=== PATIENT | male | born 1975 | race Caucasian/White ===

== ENCOUNTER 2020-04-02 13:24 | Inpatient (IN) | payer MEDICAID ==
[~2020-04-02] VITALS: Ht 167.6 cm; Wt 100.2 kg
[2020-04-02] MEDS ORDERED: ACETAMINOPHEN 500MG TABLET PO ONE (15:00)
[2020-04-02 15:09] LABS: BASOPHILS % 0.2 % (0.0-2.0); HEMATOCRIT. 41.3 % (42.0-52.0); HEMOGLOBIN. 14.2 g/dL (14.0-18.0); LYMPHOCYTES % 12.5 % (20.0-50.0); MEAN CORPUSCULAR HEMOGLOBIN 27.4 pg (28.0-32.0); MEAN CORPUSCULAR VOLUME 79.8 fL (80.0-94.0); MEAN PLATELET VOLUME 7.9 fl (7.4-10.4); MONOCYTES % 4.7 % (2.0-8.0); NEUTROPHILS % 82.6 % (40.0-76.0); PLATELET 245 x1000/uL (130-400); RED BLOOD CELL COUNT 5.17 mill/uL (4.7-6.1); RED CELL DISTRIBUTION WIDTH 14.5 % (11.6-14.6)
[2020-04-02 15:18] LABS: CHLORIDE 100 mEq/L (98-107)
[2020-04-02 15:19] LABS: PROTHROMBIN TIME 10.8 sec (9.6-11.0)
[2020-04-02] MEDS ORDERED: ONDANSETRON HCL 4MG/2ML INJ IV PRN (16:00)
[2020-04-02] MEDS ORDERED: CEFTRIAXONE 1 G PREMIX 50 ML IV SCH (16:30)
[2020-04-02] MEDS: DEXAMETHASONE 4MG TABLET PO SCH (17:37)
[2020-04-02] MEDS: ALBUTEROL 6.7GM HFA INHALER ORI SCH (18:00)
[2020-04-02] MEDS: ENOXAPARIN 100MG/ML SYR SUBCUT SCH (18:39)
[2020-04-02] MEDS: GUAIFENESIN 600MG ER TABLET PO SCH (21:00)
[2020-04-02 22:00] VITALS: BP 148/83
[2020-04-02 22:03] LABS: CLARITY URINE CLEAR (CLEAR); COLOR URINE YELLOW (YELLOW); KETONES URINE 2+ (NEGATIVE); LEUKOCYTE ESTERASE URINE NEGATIVE (NEGATIVE); NITRITE URINE NEGATIVE (NEGATIVE); OCCULT BLOOD URINE NEGATIVE (NEGATIVE); PROTEIN URINE 1+ (NEGATIVE); SPECIFIC GRAVITY URINE 1.024 (1.005-1.030)
[2020-04-02 22:18] LABS: *AMPHETAMINES SCREEN URINE NEGATIVE (NEGATIVE); *BARBITURATES SCREEN URINE NEGATIVE (NEGATIVE); *BENZODIAZEPINES SCREEN URINE NEGATIVE (NEGATIVE); *COCAINE SCREEN URINE NEGATIVE (NEGATIVE)
[2020-04-02 22:19] LABS: CANNABINOID URINE SCREEN NEGATIVE (NEGATIVE); METHADONE URINE SCREEN NEGATIVE (NEGATIVE); OPIATES URINE SCREEN NEGATIVE (NEGATIVE); PHENCYCLIDINE URINE SCREEN NEGATIVE (NEGATIVE)
[2020-04-03] VITALS: BP 108/65
[2020-04-03 04:00] VITALS: BP 111/72
[2020-04-03] MEDS: ENOXAPARIN 100MG/ML SYR SUBCUT SCH ×2 (05:02→17:03)
[2020-04-03] MEDS: ALBUTEROL 6.7GM HFA INHALER ORI SCH ×5 (05:02→23:25)
[2020-04-03] MEDS: BENZONATATE 100MG CAPSULE PO PRN (05:15)
[2020-04-03 08:00] VITALS: BP 118/67
[2020-04-03] MEDS: AZITHROMYCIN 500 MG TABLET PO SCH (09:58)
[2020-04-03] MEDS: DEXAMETHASONE 4MG TABLET PO SCH (09:58)
[2020-04-03] MEDS: GUAIFENESIN 600MG ER TABLET PO SCH ×2 (09:58→20:25)
[2020-04-03 12:00] VITALS: BP 127/71
[2020-04-03] MEDS: CEFTRIAXONE 1 G PREMIX 50 ML IV SCH (13:32)
[2020-04-03 16:00] VITALS: BP 115/61
[2020-04-03 19:15] LABS: BG BASE EXCESS 0.6 mmol/L (-2.0-2.0); BG CARBOXYHEMOGLOBIN 0.3 % (0.5-1.5); BG DEOXYHEMOGLOBIN 8.5 % (0.0-5.0); BG FRACTION INSPIRED OXYGEN 21; BG HCO3 ACT 25.1 mmol/L (22.0-26.0); BG METHEMOGLOBIN 0.3 % (0.0-1.5); BG OXYGEN SATURATION 91.4 % (92.0-98.5); BG OXYHEMOGLOBIN 90.9 % (94.0-97.0); BG PH 7.416 (7.350-7.450); BG PO2 59.6 mmHg (75.0-100.0); BG SAMPLE SITE RIGHT RADIAL; BG TOTAL HEMOGLOBIN 15.5 g/dL (12.0-18.0); BG VENT MODE ROOM AIR
[2020-04-03 20:00] VITALS: BP 127/95
[2020-04-04] VITALS: BP 118/60
[2020-04-04] MEDS: BENZONATATE 100MG CAPSULE PO PRN (01:07)
[2020-04-04 04:00] VITALS: BP 125/67
[2020-04-04] MEDS: ALBUTEROL 6.7GM HFA INHALER ORI SCH ×3 (05:11→17:45)
[2020-04-04] MEDS: ENOXAPARIN 100MG/ML SYR SUBCUT SCH ×2 (05:11→17:44)
[2020-04-04 08:00] VITALS: BP 121/95
[2020-04-04] MEDS: AZITHROMYCIN 500 MG TABLET PO SCH (08:55)
[2020-04-04] MEDS: DEXAMETHASONE 4MG TABLET PO SCH (08:55)
[2020-04-04] MEDS: GUAIFENESIN 600MG ER TABLET PO SCH ×2 (08:55→20:15)
[2020-04-04 12:00] VITALS: BP 120/81
[2020-04-04] MEDS: CEFTRIAXONE 1 G PREMIX 50 ML IV SCH (13:06)
[2020-04-04 16:00] VITALS: BP 124/82
[2020-04-04 20:00] VITALS: BP 121/73
[2020-04-05] VITALS: BP 132/81
[2020-04-05] MEDS: ALBUTEROL 6.7GM HFA INHALER ORI SCH ×4 (00:07→17:06)
[2020-04-05] MEDS: ACETAMINOPHEN 325MG TABLET PO PRN ×3 (00:07→20:25)
[2020-04-05 04:00] VITALS: BP 101/63
[2020-04-05] MEDS: ENOXAPARIN 100MG/ML SYR SUBCUT SCH ×2 (05:06→17:06)
[2020-04-05 08:00] VITALS: BP 111/66
[2020-04-05] MEDS: DEXAMETHASONE 4MG TABLET PO SCH (08:23)
[2020-04-05] MEDS: AZITHROMYCIN 500 MG TABLET PO SCH (08:23)
[2020-04-05] MEDS: GUAIFENESIN 600MG ER TABLET PO SCH (08:23)
[2020-04-05 12:00] VITALS: BP 117/83
[2020-04-05] MEDS ORDERED: REMDESIVIR 200 MG in SODIUM CHLORIDE 0.9% 250 ML IV NR (13:30)
[2020-04-05] MEDS: CEFTRIAXONE 1 G PREMIX 50 ML IV SCH (15:00)
[2020-04-05 16:00] VITALS: BP 95/49
[2020-04-05 20:00] VITALS: BP 125/83
[2020-04-06] VITALS: BP 124/84
[2020-04-06] MEDS: BENZONATATE 100MG CAPSULE PO PRN ×2 (00:10→18:21)
[2020-04-06] MEDS: ALBUTEROL 6.7GM HFA INHALER ORI SCH ×4 (00:11→17:25)
[2020-04-06] MEDS: PROMETHAZINE/DEXTROMETHORPHAN 6.25-15MG/5ML BOTTLE 120ML PO PRN ×2 (00:59→06:59)
[2020-04-06 04:00] VITALS: BP 129/75
[2020-04-06] MEDS: ENOXAPARIN 100MG/ML SYR SUBCUT SCH ×2 (05:13→18:19)
[2020-04-06 07:18] LABS: CHLORIDE 106 mEq/L (98-107)
[2020-04-06 08:00] VITALS: BP 103/63
[2020-04-06] MEDS: DEXAMETHASONE 4MG TABLET PO SCH (08:24)
[2020-04-06] MEDS: AZITHROMYCIN 500 MG TABLET PO SCH (08:24)
[2020-04-06 12:00] VITALS: BP 120/67
[2020-04-06] MEDS: REMDESIVIR 100 MG in SODIUM CHLORIDE 0.9% 250 ML IV SCH (14:18)
[2020-04-06 16:00] VITALS: BP 113/74
[2020-04-06] MEDS: CEFTRIAXONE 1 G PREMIX 50 ML IV SCH (16:58)
[2020-04-06 20:00] VITALS: BP 118/81
[2020-04-06] MEDS: ACETAMINOPHEN 325MG TABLET PO PRN (21:24)
[2020-04-07] VITALS: BP 130/84
[2020-04-07 04:00] VITALS: BP 136/79
[2020-04-07] MEDS: ALBUTEROL 6.7GM HFA INHALER ORI SCH ×5 (04:14→23:56)
[2020-04-07] MEDS: PROMETHAZINE/DEXTROMETHORPHAN 6.25-15MG/5ML BOTTLE 120ML PO PRN ×3 (04:15→21:47)
[2020-04-07 05:48] LABS: CHLORIDE 106 mEq/L (98-107)
[2020-04-07] MEDS: ACETAMINOPHEN 325MG TABLET PO PRN ×3 (05:55→21:47)
[2020-04-07] MEDS: ENOXAPARIN 100MG/ML SYR SUBCUT SCH ×2 (05:55→18:25)
[2020-04-07 08:00] VITALS: BP 113/75
[2020-04-07] MEDS: AZITHROMYCIN 500 MG TABLET PO SCH (08:46)
[2020-04-07] MEDS: DEXAMETHASONE 4MG TABLET PO SCH (08:46)
[2020-04-07 12:00] VITALS: BP 119/84
[2020-04-07] MEDS: REMDESIVIR 100 MG in SODIUM CHLORIDE 0.9% 250 ML IV SCH (13:16)
[2020-04-07] MEDS: CEFTRIAXONE 1 G PREMIX 50 ML IV SCH (14:04)
[2020-04-07 16:00] VITALS: BP 122/84
[2020-04-07 20:00] VITALS: BP 132/71
[2020-04-08] VITALS: BP 135/93
[2020-04-08] MEDS: ACETAMINOPHEN 325MG TABLET PO PRN ×2 (02:06→11:08)
[2020-04-08] MEDS: BENZONATATE 100MG CAPSULE PO PRN (02:06)
[2020-04-08 04:00] VITALS: BP 110/67
[2020-04-08] MEDS: ENOXAPARIN 100MG/ML SYR SUBCUT SCH ×2 (05:00→19:18)
[2020-04-08] MEDS: ALBUTEROL 6.7GM HFA INHALER ORI SCH ×4 (05:00→23:01)
[2020-04-08 08:00] VITALS: BP 121/80
[2020-04-08] MEDS: DEXAMETHASONE 2MG TABLET PO SCH (08:36)
[2020-04-08] MEDS: AZITHROMYCIN 500 MG TABLET PO SCH (08:36)
[2020-04-08 09:52] LABS: CHLORIDE 106 mEq/L (98-107)
[2020-04-08 12:00] VITALS: BP 115/79
[2020-04-08 12:41] LABS: BG BASE EXCESS -0.4 mmol/L (-2.0-2.0); BG CARBOXYHEMOGLOBIN 0.4 % (0.5-1.5); BG DEOXYHEMOGLOBIN 6.5 % (0.0-5.0); BG FRACTION INSPIRED OXYGEN 21; BG HCO3 ACT 23.5 mmol/L (22.0-26.0); BG METHEMOGLOBIN 0.3 % (0.0-1.5); BG OXYGEN SATURATION 93.5 % (92.0-98.5); BG OXYHEMOGLOBIN 92.8 % (94.0-97.0); BG PCO2 36.8 mmHg (35.0-45.0); BG PH 7.424 (7.350-7.450); BG PO2 66.2 mmHg (75.0-100.0); BG SAMPLE SITE LEFT RADIAL; BG TOTAL HEMOGLOBIN 15.8 g/dL (12.0-18.0); BG VENT MODE ROOM AIR
[2020-04-08] MEDS: REMDESIVIR 100 MG in SODIUM CHLORIDE 0.9% 250 ML IV SCH (13:12)
[2020-04-08 16:00] VITALS: BP 122/77
[2020-04-08 20:00] VITALS: BP 129/79
[2020-04-09] VITALS: BP 122/80
[2020-04-09] MEDS: BENZONATATE 100MG CAPSULE PO PRN (00:19)
[2020-04-09 04:00] VITALS: BP 113/77
[2020-04-09] MEDS: ENOXAPARIN 100MG/ML SYR SUBCUT SCH ×2 (05:26→17:14)
[2020-04-09] MEDS: ALBUTEROL 6.7GM HFA INHALER ORI SCH ×4 (05:26→23:26)
[2020-04-09] MEDS: ACETAMINOPHEN 325MG TABLET PO PRN ×2 (05:29→17:19)
[2020-04-09 07:41] LABS: CHLORIDE 105 mEq/L (98-107)
[2020-04-09 08:00] VITALS: BP 112/80
[2020-04-09] MEDS: DEXAMETHASONE 2MG TABLET PO SCH (08:26)
[2020-04-09 12:00] VITALS: BP 115/78
[2020-04-09] MEDS: REMDESIVIR 100 MG in SODIUM CHLORIDE 0.9% 250 ML IV SCH (13:25)
[2020-04-09 16:00] VITALS: BP 111/70
[2020-04-09] MEDS: PROMETHAZINE/DEXTROMETHORPHAN 6.25-15MG/5ML BOTTLE 120ML PO PRN (17:19)
[2020-04-09 20:00] VITALS: BP 122/83
[2020-04-09] MEDS: GUAIFENESIN 600MG ER TABLET PO SCH (20:29)
[2020-04-10 00:05] VITALS: BP 126/83
[2020-04-10] MEDS: ACETAMINOPHEN 325MG TABLET PO PRN (00:38)
[2020-04-10 04:00] VITALS: BP 138/79
[2020-04-10] MEDS: ALBUTEROL 6.7GM HFA INHALER ORI SCH (05:24)
[2020-04-10] MEDS: ENOXAPARIN 100MG/ML SYR SUBCUT SCH (05:24)
[2020-04-10] MEDS: PROMETHAZINE/DEXTROMETHORPHAN 6.25-15MG/5ML BOTTLE 120ML PO PRN (05:28)
[2020-04-10 08:00] VITALS: BP 116/88
[2020-04-10] MEDS: DEXAMETHASONE 2MG TABLET PO SCH (08:52)
[2020-04-10] MEDS: GUAIFENESIN 600MG ER TABLET PO SCH (08:52)
[2020-04-10 12:00] VITALS: BP 128/81
[2020-04-10 15:06] VITALS: BP 128/81
== END 2020-04-10 17:00 | disposition home or self-care (01) | DRG 720 ==
LOC: ER 13:24 → 7WST 15:32 → EDBEDREQ 15:51 → ENRESERV 19:25
PROVIDERS: ADMIT Internal Medicine; ATTEND Internal Medicine
DX: A41.89 Other specified sepsis (principal); U07.1 COVID-19; J96.01 Acute respiratory failure with hypoxia; J12.89 Other viral pneumonia; D72.810 Lymphocytopenia; E66.01 Morbid (severe) obesity due to excess calories; Z68.35 Body mass index [BMI] 35.0-35.9, adult
CPT/HCPCS: 36415; 36600; 71045; 80053; 80305; 81003; 82375; 82805; 83605; 83615; 84145; 84484; 85025; 93005; 96365; 99285; J0696; J1650; J7050; J8540; Q9957; U0003-CS

== ENCOUNTER 2020-08-21 17:51 | Emergency (ER) | payer MEDICAID ==
[~2020-08-21] VITALS: Ht 167.6 cm; Wt 98.0 kg
[2020-08-21 20:26] LABS: BASOPHILS % 0.4 % (0.0-2.0); EOSINOPHILS % 1.1 % (0.0-5.0); HEMATOCRIT. 45.8 % (42.0-52.0); LYMPHOCYTES % 27.2 % (20.0-50.0); MEAN CORPUSCULAR HEMOGLOBIN 26.5 pg (28.0-32.0); MEAN PLATELET VOLUME 7.3 fl (7.4-10.4); MONOCYTES % 7.7 % (2.0-8.0); NEUTROPHILS % 63.6 % (40.0-76.0); PLATELET 363 x1000/uL (130-400); RED BLOOD CELL COUNT 5.65 mill/uL (4.7-6.1)
[2020-08-21 20:32] LABS: CHLORIDE 106 mEq/L (98-107)
[2020-08-21] MEDS ORDERED: KETOROLAC 15MG/ML VIAL IV ONE (22:00)
[2020-08-21 23:53] VITALS: BP 139/87
== END 2020-08-22 00:10 | disposition home or self-care (01) ==
LOC: ER 18:19
DX: R07.89 Other chest pain (principal)
CPT/HCPCS: 36415; 71045; 80053; 84484; 85025; 93005; 96374; 99285; J1885